=== PATIENT | male | born 1965 ===

== ENCOUNTER 2019-01-12 11:11 | Emergency (ER) | payer OTHER ==
[~2019-01-12] VITALS: Ht 165.1 cm; Wt 72.6 kg
[2019-01-12] MEDS ORDERED: SODIUM CHLORIDE FLUSH 10ML SYR IVF ONE (11:30)
[2019-01-12] MEDS ORDERED: DIPHENHYDRAMINE 50 MG/ML, 1ML IVPush ONE (11:30)
[2019-01-12] MEDS ORDERED: KETOROLAC 30 MG/1 ML IVPush ONE (11:30)
[2019-01-12] MEDS ORDERED: METOCLOPRAMIDE 5 MG/ML, 2ML IVPush ONE (11:30)
[2019-01-12] MEDS ORDERED: METHOCARBAMOL 1,000 MG in DEXTROSE 5% 100 ML IV ONE (11:30)
[2019-01-12] MEDS ORDERED: KETOROLAC 30 MG/1 ML ONE (11:43)
[2019-01-12] MEDS ORDERED: DIPHENHYDRAMINE 50 MG/ML, 1ML ONE (11:43)
[2019-01-12] MEDS ORDERED: METOCLOPRAMIDE 5 MG/ML, 2ML ONE (11:43)
--- NOTE | 2019-01-12 12:26 | NUR ---
lab to re-draw pt
--- NOTE | 2019-01-12 12:37 | NUR ---
PT RESTING IN [facility] WITH AT BEDSIDE, MINIMAL RELIEF OF BYRNE AFTER MEDICATION. VSS, CALL LIGHT ANDER BRANNON, ROBAXIN INFUSING. LAB AT [facility] FOR REDRAW.
[2019-01-12 12:56] LABS: ANION GAP 8 mmol/L (5-15); CALCIUM 8.5 mg/dL (8.5-10.1); CHLORIDE 111 mmol/L (98-107)
--- NOTE | 2019-01-12 13:36 | NUR ---
PT RETURNED FROM CT, [facility] BYRNE STILL 03/29 DESPITE MEDIACATIONS. NOTIFIED. PT UP FOR RECHECK WHEN CT RESULTS BACK
[2019-01-12] MEDS ORDERED: OMNIPAQUE 350 MG/ML, 100ML BOTTLE ONE (13:45)
--- NOTE | 2019-01-12 14:32 | NUR ---
PT TO GET NERVE BLOCK FROM PA
[2019-01-12] MEDS ORDERED: LIDOCAINE 1%, 10ML INFIL ONE (15:00)
[2019-01-12] MEDS ORDERED: LIDOCAINE-MPF 1%, 5ML ONE (15:10)
--- NOTE | 2019-01-12 15:14 | NUR ---
PA AT BEDSIDE FOR NERVE BLOCK
[2019-01-12 15:43] VITALS: BP 111/74
== END 2019-01-12 15:45 | disposition home or self-care (01) ==
LOC: ED 14:44
DX: M54.81 Occipital neuralgia (principal); R51 Headache; E11.9 Type 2 diabetes mellitus without complications; F17.200 Nicotine dependence, unspecified, uncomplicated
CPT/HCPCS: 36415; 64450; 70450; 70496; 80048; 96365; 96366; 96375; 99284; J1200; J1885; J2765; J2800; Q9967